=== PATIENT | female | born 1965 | race Caucasian/White ===

== ENCOUNTER 2024-07-09 00:20 | Emergency (ER) | payer MEDICARE, MEDICAID, SELFPAY ==
--- NOTE | ~2024-07-09 | XR_ITS ---
CLINICAL HISTORY: pain 3 views left hand Comparison: None Findings: There is no fracture or dislocation. There is mild osteoarthritis of the 1st carpometacarpal joint. There is no radiopaque foreign body. Impression: No acute findings. This document has been electronically signed by: Huy Martinez MD on 07/09/2024 02:05:04
--- NOTE | ~2024-07-09 | XR_ITS ---
CLINICAL HISTORY: pain 2 views left forearm Comparison: None Findings: There is no fracture or dislocation. Joint spaces appear normal. There is no radiopaque foreign body. Impression: Unremarkable left forearm radiographs. This document has been electronically signed by: Huy Martinez MD on 07/09/2024 02:02:59
[2024-07-09 00:33] VITALS: BP 102/64; PULSE 84; O2SAT 97
[2024-07-09 00:57] VITALS: BP 93/54; PULSE 61; RESP 20; TEMP 36.5; O2SAT 95; BMI 40.3
[2024-07-09 04:00] VITALS: BP 95/52; PULSE 53; RESP 16; TEMP 36.3; O2SAT 96
[2024-07-09] MEDS: Acetaminophen 325 MG TABLET 650 MG PO (06:18)
--- NOTE | 2024-07-09 07:26 | ED.GENADULT ---
HPI - General Adult General Chief complaint: Extremity Problem Stated complaint: FEELS PINS&NEEDLES LT ARM ELBOW TO HAND Time Seen by Provider: 07/09/24 07:21 Source: patient and EMS Mode of arrival: EMS Limitations: no limitations History of Present Illness ED Provider: DR. Rosa HPI narrative: 58-year-old female with known history of TBI, diabetes and peripheral neuropathy came in with intermittent bilateral hands and forearms pins and needles and burning sensation going for 2 months patient was diagnosed with peripheral neuropathy is taking gabapentin for her chronic condition without relief of her symptoms, patient now is complaining of no extremities pain, no trauma to her extremities, no fall, no injury. No recent travel, no recent prolonged immobilization, no history of DVT, no chest pain, no SOB. Related Data Allergies Allergy/AdvReac Type Severity Reaction Status Date / Time Penicillins Allergy Anaphylaxis Verified 07/09/24 01:08 Review of Systems Review of Systems: All other systems are reviewed and are negative Constitutional: Reports as per HPI and Reports no additional constitutional complaints Eyes: Reports as per HPI and Reports no additional eye complaints Reports system reviewed and no additional complaints, except as documented Cardiovascular: Reports as per HPI and Reports no additional cardiovascular complaints Respiratory: Reports as per HPI and Reports no additional respiratory complaints Gastrointestinal: Reports as per HPI and Reports no additional gastrointestinal complaints Genitourinary: Reports no additional female genitourinary complaints Musculoskeletal: Reports no additional musculoskeletal complaints Skin/Breast: Reports system reviewed and no additional complaints, except as docu Psychiatric: Reports no additional psychiatric complaints Endocrine: Reports no additional endocrine complaints Hematologic/Lymphatic: Reports no additional hematologic/lymphatic complaints Allergic/Immunologic: Reports no additional allergic/immunologic complaints Reports system reviewed and no additional complaints, except as documented and Reports Abnormal speech present [facility] Social History Social History Smoked in Last 30 Days: No Advance Directives: Yes Advance Directives on File: No Physical Exam ED Vital Signs: Vital Signs - 24 hr 07/09/24 00:57 07/09/24 04:00 Temperature 97.7 F 97.3 F Pulse Rate 61 53 Respiratory Rate 20 16 Blood Pressure 93/54 L 95/52 L Pulse Oximetry 95 96 Oxygen Delivery Method Room Air Room Air BMI result Body Mass Index 40.3 Vital signs have been reviewed and appear to be correct. Blood pressure elevated. Heart rate normal. Respiratory rate normal. Temperature normal. Oxygen saturation normal. Appearance: Alert. Oriented X3. No acute distress. Head: Normal external exam. Normocephalic. Atraumatic. No Goff signs noted. No raccoon eyes noted Eyes: PERRLA. EOMI. Conjunctiva and sclera normal. Eyelids normal. ENT: TM's Normal. Pharynx normal. Uvula midline. Moist mucous membranes. No trismus noted. No drooling noted. No muffled voice noted. Neck: Normal inspection. Neck supple. FROM. No adenopathy. Thyroid Normal. No meningeal signs. No neck mass noted. CVS: Normal heart rate and rhythm. Heart sound normal. No murmurs noted. Pulses normal throughout. Respiratory: No respiratory distress. Painless inspiration. Breath sounds normal. No wheezes/rales/rhonchi noted. Chest nontender. No accessory muscle usage noted or decreased air movement noted. Abdomen: Soft and nontender. Bowel sounds normal in all 4 quadrants. No distention noted. No organomegaly noted. No visible injury noted. Back: No CVA tenderness. Full range of motion noted. Skin: Skin warm and dry. Normal skin color. Normal skin turgor. No rashes/lesions/lacerations noted. Extremities: No lower extremity edema. Extremities exhibit normal range of motion. Extremities nontender. Neuro: Oriented X 3. Cranial nerve exam: II-XII are grossly intact No motor deficit. No sensory deficit. Reflexes normal. Course Reevaluation(s) Reevaluation #1: patient's symptoms is secondary to diabetic peripheral neuropathy patient is already taking gabapentin was instructed to follow-up with her PCP for further evaluation. VS is 124 in the ED. Time: 07:29 Medications Administered Discontinued Medications Generic Name Dose Route Start Last Admin Trade Name Freq PRN Reason Stop Dose Admin Acetaminophen 650 mg 07/09/24 06:14 07/09/24 06:18 Acetaminophen 325 Mg Tablet PO 07/09/24 06:15 650 mg ONCE ONE Administration Medical Decision Making Differential Diagnosis Differential Diagnoses: The differential diagnosis associated with the presentation includes ( Peripheral neuropathy, DVT, left arm injury.) Admission/Observation Consideration of admission/observation: Escalation of care including admission/observation considered Lab Data Labs: Lab Results 07/09/24 Range/Units 07:36 POC Glucose 124 H (60-115) mg/dL Independent Interpretation I performed an independent interpretation of an: Plain X-Ray ( Left hand/ left forearm: No acute fracture.) Radiology Impression Discussion of test interpretation with radiology: I have reviewed the radiologist's reading. Discharge Plan Discharge Clinical Impression: Diabetic peripheral neuropathy Patient Disposition: Xfer [facility] Instructions: Diabetic Peripheral Neuropathy (ED) Referrals: Ascencion Blum DO [Primary Care Provider] - Print Language: Divehi
[2024-07-09 07:41] LABS: Glucose, Whole Blood 124 mg/dL (60-115)
[2024-07-09 08:41] VITALS: BP 97/58; PULSE 60; RESP 15; TEMP 36.6; O2SAT 97
[2024-07-09 11:02] VITALS: BP 100/60; PULSE 80; RESP 14; TEMP 36.8; O2SAT 98
== END 2024-07-09 10:30 | disposition skilled nursing facility (03) ==
PROVIDERS: Emergency Provider Emergency Medicine; PCP Hospitalist
DX: E11.42 Type 2 diabetes mellitus with diabetic polyneuropathy (principal); M79.642 Pain in left hand; M25.522 Pain in left elbow
CPT/HCPCS: 73090; 73130; 82947; 99284; 99285

== ENCOUNTER → 2024-07-09 01:30 | Outpatient (BNV) | payer MEDICARE, MEDICAID, SELFPAY | PROVIDERS: PCP Hospitalist; Visit Provider Radiology Diagnostic Radiology | DX: M79.642 Pain in left hand (principal); M79.632 Pain in left forearm | CPT/HCPCS: 73090; 73130 ==

== ENCOUNTER 2025-05-16 13:49 | Outpatient (REF) | payer MEDICARE, MEDICAID, SELFPAY ==
--- NOTE | ~2025-05-16 | MM_ITS ---
EXAMINATION: MM SCREENING DIGITAL BREAST TOMOSYNTHESIS, BILATERAL CLINICAL INFORMATION: Screening. Asymptomatic. COMPARISON: Mammography: No prior imaging available for comparison. TECHNIQUE: Digital breast mammography with tomosynthesis is performed in both the craniocaudal and mediolateral oblique views along with computer-aided detection (CAD). FINDINGS: There are scattered areas of fibroglandular density. Right: Right marker clip. Focal asymmetry upper central breast middle to posterior depth. No suspicious calcifications or other abnormal findings. Left: Focal asymmetry upper central breast posterior depth. No suspicious calcifications or other abnormal findings. MM/MM tomosynthesis screening BI IMPRESSION: Additional imaging is recommended ASSESSMENT: BI-RADS Category 0: Incomplete - Need additional Imaging Evaluation RECOMMENDATION: 1. Additional views of the bilateral breasts. 2. Targeted ultrasound if warranted after review of the additional views. 3. Radiology department staff will contact the patient for additional imaging. Additional Imaging required This examination should not preclude the clinical evaluation of a suspicious palpable abnormality. This patient's information was entered into a reminder system with a target due date for their next mammogram. Electronically signed by: Lyssa Walker DO 05/18/2025 06:35 PM DINO
--- OUTSIDE RECORDS SUMMARY | 2025-05-16 21:21 | XMS_ITS | Encounter Summary ---
Author Organization [facility] Address [address] [place] [address] Care Team Providers Care Hardwood Floor Sander Name Role Phone Ascencion Blum MD Primary Care Provider Encounter Details Date Type Department Care Team (Late st Contact Info) Description 06/02/2024 Lab Requisition [facility] Lab [address] [place] [address] Ascencion Blum MD [address] [place] [address] Dr [address] [place], [place] Bipolar disorder, unspecified (CMS/HCC V24, CMS/HCC V28) Social History Tobacco Use Types Packs/Day Years Used Date Smoking Tobacco: Never Assessed Comments Unknown Sex and Gender Information Value Date Recorded Sex Assigned at Not on file Legal Sex Female 3:40 PM EDT Gender Identity Not on file Sexual Orientation Not on file documented as of this encounter Plan of Treatment Not on file documented as of this encounter Procedures Procedure Name Priority Date/Time Associated Diagnosis Comments THYROID STIMULATING HORMONE Routine 06/02/2024 7:02 AM EST Bipolar disorder, unspecified (CMS/HCC) HEMOGLOBIN A1C Routine 06/02/2024 7:02 AM EST Bipolar disorder, unspecified (CMS/HCC) documented in this encounter Results * Thyroid stimulating hormone (06/02/2024 7:02 AM EST) TSH 1.40 0.40 - 4.00 mcIU/mL LAB CHEMISTRY METHOD 06/02/2024 8:11 AM EST [facility] LAB Blood Venous blood specimen / Unknown 06/02/2024 7:02 AM EST 06/02/2024 7:40 AM EST us Ascencion Blum MD LAB BLOOD ORDERABLES Final Resul t Performing Organization Address [facility]/ZIP Co de Phone Number [facility] LAB [address] [place] [address], [place] [phone] * Hemoglobin A1c (06/02/2024 7:02 AM EST) Hemoglobin A1C 6.3 <6.5 % LAB CHEMISTRY METHOD 06/02/2024 12:25 PM EST [facility] LAB Mean Bld Glu Estim. 134 mg/dL LAB CHEMISTRY METHOD 06/02/2024 12:25 PM EST [facility] LAB Blood Venous blood specimen / Unknown 06/02/2024 7:02 AM EST 06/02/2024 7:40 AM EST us Ascencion Blum MD LAB BLOOD ORDERABLES Final Resul t Performing Organization Address [facility] Co de Phone Number [facility] LAB [address] [place] [address], [place] [phone] documented in this encounter Visit Diagnoses Diagnosis Bipolar disorder, unspecified (CMS/HCC V24, CMS/HCC V28) Bipolar disorder, unspecified documented in this encounter Care Teams Hardwood Floor Sander Relationship Specialty Start Date End Date Ascencion Blum MD [address] [place] [address] Dr [address] [place] [address] [place] PCP - General Internal Medicine 12/01/24 documented as of this encounter
--- OUTSIDE RECORDS SUMMARY | 2025-05-16 21:22 | XMS_ITS | Encounter Summary ---
Author Organization [facility] Address [address] [place] [address] Care Team Providers Care Composite Laminator Name Role Phone Ascencion Blum MD Primary Care Provider [phone] Encounter Details Date Type Department Care Team (Late st Contact Info) Description 03/20/2025 Lab Requisition [facility] - Main Lab [address] [facility] [place] [address] Ascencion Blum MD [address] [place] [address] [address] [place] Type 2 diabetes mellitus with diabetic polyneuropathy (CMS/HCC V24, CMS/HCC V28); Gastro-esophageal reflux disease without esophagitis; Hypothyroidism, unspecified Social History Tobacco Use Types Packs/Day Years [...] Associated Diagnosis Comments THYROID STIMULATING HORMONE Routine 03/20/2025 6:50 AM EDT Type 2 diabetes mellitus with diabetic polyneuropathy (CMS/HCC V24, CMS/HCC V28) Gastro-esophageal reflux disease without esophagitis Hypothyroidism, unspecified THYROXINE FREE Routine 03/20/2025 6:50 AM EDT Type 2 diabetes mellitus with diabetic polyneuropathy (CMS/HCC V24, CMS/HCC V28) Gastro-esophageal reflux disease without esophagitis Hypothyroidism, unspecified HEMOGLOBIN A1C Routine 03/20/2025 6:50 AM EDT Type 2 diabetes mellitus with diabetic polyneuropathy (CMS/HCC V24, CMS/HCC V28) Gastro-esophageal reflux disease without esophagitis Hypothyroidism, unspecified COMPREHENSIVE METABOLIC PANEL Routine 03/20/2025 6:50 AM EDT Type 2 diabetes mellitus with diabetic polyneuropathy ([facility] V24, [facility] V28) Gastro-esophageal reflux disease without esophagitis Hypothyroidism, unspecified documented in this encounter Results * Thyroid stimulating hormone (03/20/2025 6:50 AM EDT) TSH 0.85 0.40 - 4.00 mcIU/mL LAB CHEMISTRY METHOD 03/20/2025 11:01 AM EDT [facility] LAB Blood Venous blood specimen / Unknown 03/20/2025 6:50 AM EDT 03/20/2025 7:53 AM EDT us Ascencion Blum MD LAB BLOOD ORDERABLES Final Resul t Performing Organization Address City/[facility]/ZIP Co de Phone Number [facility] LAB [address] [place] [address], [place] [phone] * Hemoglobin A1c (03/20/2025 6:50 AM EDT) Pathologist [facility] Hemoglobin A1C 6.1 <6.5 % LAB CHEMISTRY METHOD 03/20/2025 11:17 AM EDT [facility] LAB Mean Bld Glu Estim. 128 mg/dL LAB CHEMISTRY METHOD 03/20/2025 11:17 AM EDT [facility] LAB Blood Venous blood specimen / Unknown 03/20/2025 6:50 AM EDT 03/20/2025 7:53 AM EDT us Ascencion Blum MD LAB BLOOD ORDERABLES Final Resul t Performing Organization Address City/[facility]/ZIP Co de Phone Number [facility] LAB [address] [place] [address], [place] [phone] * Thyroxine free (03/20/2025 6:50 AM EDT) Free T4 1.37 0.70 - 1.80 ng/dL LAB CHEMISTRY METHOD 03/20/2025 11:01 AM [facility] LAB Blood Venous blood specimen / Unknown 03/20/2025 6:50 AM EDT 03/20/2025 7:53 AM EDT us Ascencion Blum MD LAB BLOOD ORDERABLES Final Resul t [facility] LAB [address] [place] [address], * (ABNORMAL) Comprehensive metabolic panel (03/20/2025 6:50 AM EDT) Sodium 141 133 - 145 mmol/L LAB CHEMISTRY METHOD 03/20/2025 8:46 AM [facility] Potassium 4.9 3.5 - 5.5 mmol/L LAB CHEMISTRY METHOD 03/20/2025 8:46 AM [facility] Chloride 106 96 - 110 mmol/L LAB CHEMISTRY METHOD 03/20/2025 8:46 AM [facility] CO2 31 21 - 32 mmol/L LAB CHEMISTRY METHOD 03/20/2025 8:46 AM [facility] Anion Gap 4 3 - 11 LAB CHEMISTRY METHOD 03/20/2025 8:46 AM [facility] Glucose 125(H) 70 - 100 mg/dL LAB CHEMISTRY METHOD 03/20/2025 8:46 AM [facility] BUN 8 5 - 25 mg/dL LAB CHEMISTRY METHOD 03/20/2025 8:46 AM [facility] Creatinine 0.69 0.50 - 1.10 mg/dL LAB CHEMISTRY METHOD 03/20/2025 8:46 AM [facility] LAB eGFR 101 >=60 mL/min/1. 73m2 LAB CHEMISTRY METHOD 03/20/2025 8:46 AM [facility] LAB Comment:Calculation based on the Chronic Kidney Disease Epidemiology Collaboration (CKD-EPI) equation refit without adjustment for race. BUN/Creatinine Ratio 11.6 LAB CHEMISTRY METHOD 03/20/2025 8:46 AM [facility] Calcium 8.9 8.5 - 10.5 mg/dL LAB CHEMISTRY METHOD 03/20/2025 8:46 AM [facility] AST (SGOT) 17 10 - 42 unit/L LAB CHEMISTRY METHOD 03/20/2025 8:46 AM [facility] ALT (SGPT) 25 10 - 60 unit/L LAB CHEMISTRY METHOD 03/20/2025 8:46 AM [facility] Alkaline Phosphatase 93 42 - 121 unit/L LAB CHEMISTRY METHOD 03/20/2025 8:46 AM [facility] Total Protein 6.1 6.0 - 8.0 g/dL LAB CHEMISTRY METHOD 03/20/2025 8:46 AM [facility] Albumin 3.2 3.2 - 5.0 g/dL LAB CHEMISTRY METHOD 03/20/2025 8:46 AM [facility] Total Bilirubin 0.2 0.0 - 1.4 mg/dL LAB CHEMISTRY METHOD 03/20/2025 8:46 AM [facility] Blood Venous blood specimen / Unknown 03/20/2025 6:50 AM EDT 03/20/2025 7:53 AM EDT us Ascencion Blum MD LAB BLOOD ORDERABLES Final Resul t [facility] LAB [address] [place] [address], documented in this encounter Visit Diagnoses Diagnosis Type 2 diabetes mellitus with diabetic polyneuropathy (CMS/HCC V24, CMS/HCC V28) Gastro-esophageal reflux disease without esophagitis Hypothyroidism, unspecified documented in this encounter Care Teams Composite Laminator Relationship Specialty Start Date End Date Ascencion Blum MD [address] [place] [address] Dr [address] [place] PCP - General Internal Medicine 12/01/24 documented as of this encounter
--- OUTSIDE RECORDS SUMMARY | 2025-05-16 21:22 | XMS_ITS | Encounter Summary ---
Author Organization [facility] Address [address] [place] [address] Care Team Providers Care Heating Fixture Tender Name Role Phone Ascencion Blum MD Primary Care Provider [phone] Encounter Details Date Type Department Care Team (Late st Contact Info) Description 12/01/[address] [facility] - Main Lab [address] [place] [address] Ascencion Blum MD [address] [place] [address] [address] [place] Hypothyroidism, unspecified; Type 2 diabetes mellitus with diabetic polyneuropathy (CMS/[facility] V24, CMS/[facility] V28) Social History Tobacco Use Types Packs/Day [...] Associated Diagnosis Comments THYROID STIMULATING HORMONE Routine 12/01/2024 7:09 AM EDT Hypothyroidism, unspecified Type 2 diabetes mellitus with diabetic polyneuropathy (CMS/HCC V24, CMS/[facility] V28) HEMOGLOBIN A1C Routine 12/01/2024 7:09 AM EDT Hypothyroidism, unspecified Type 2 diabetes mellitus with diabetic polyneuropathy (CMS/HCC V24, CMS/HCC V28) documented in this encounter Results * Hemoglobin A1c (12/01/2024 7:09 AM EDT) Hemoglobin A1C 5.9 <6.5 % LAB CHEMISTRY METHOD 12/01/2024 2:31 PM EDT [facility] LAB Mean Bld Glu Estim. 123 mg/dL LAB CHEMISTRY METHOD 12/01/2024 2:31 PM EDT [facility] LAB Blood Venous blood specimen / Unknown 12/01/2024 7:09 AM EDT 12/01/2024 8:16 AM EDT us Ascencion Blum MD LAB BLOOD ORDERABLES Final Resul t Performing Organization Address [facility]/ZIP Co de Phone Number [facility] LAB [address] [place] [address], [place] [phone] * Thyroid stimulating hormone (12/01/2024 7:09 AM EDT) TSH 0.75 0.40 - 4.00 mcIU/mL LAB CHEMISTRY METHOD 12/01/2024 9:52 AM EDT [facility] LAB Blood Venous blood specimen / Unknown 12/01/2024 7:09 AM EDT 12/01/2024 8:16 AM EDT us Ascencion Blum MD LAB BLOOD ORDERABLES Final Resul t Performing Organization Address [facility]/ZIP Co de Phone Number [facility] [address] [place] [address], [place] [phone] documented in this encounter Visit Diagnoses Diagnosis Hypothyroidism, unspecified Type 2 diabetes mellitus with diabetic polyneuropathy (CMS/HCC V24, CMS/HCC V28) documented in this encounter Care Teams Heating Fixture Tender Relationship Specialty Start Date End Date Ascencion Blum MD [address] [place] [address] Dr [address] [place], [place] PCP - General Internal Medicine 12/01/24 documented as of this encounter
--- OUTSIDE RECORDS SUMMARY | 2025-05-16 21:22 | XMS_ITS | Encounter Summary ---
Author Organization [facility] Address [address] [place] [address] Care Team Providers Care Surgical Services Coordinator Name Role Phone Ascencion Blum MD Primary Care Provider [phone] Encounter Details Date Type Department Care Team (Late st Contact Info) Description 08/31/2024 Lab Requisition [facility] - Main Lab [address] [place] [address] Ascencion Blum MD [address] [place] [address] [address] [place] Bipolar disorder, unspecified (CMS/HCC V24, CMS/HCC V28) [...] Associated Diagnosis Comments THYROID STIMULATING HORMONE Routine 08/31/2024 6:38 AM EDT Bipolar disorder, unspecified (CMS/HCC) HEMOGLOBIN A1C Routine 08/31/2024 6:38 AM EDT Bipolar disorder, unspecified (CMS/HCC) documented in this encounter Results * Thyroid stimulating hormone (08/31/2024 6:38 AM EDT) TSH 1.81 0.40 - 4.00 mcIU/mL LAB CHEMISTRY METHOD 08/31/2024 8:28 AM EDT [facility] ([facility]) [facility] LAB Blood Venous blood specimen / Unknown 08/31/2024 6:38 AM EDT 08/31/2024 7:14 AM EDT us Ascencion Blum MD LAB BLOOD ORDERABLES Final Resul t Performing Organization Address [facility]/ZIP Co de Phone Number [facility] [address] [place] [address], [place] [phone] * Hemoglobin A1c (08/31/2024 6:38 AM EDT) Hemoglobin A1C 5.9 <6.5 % LAB CHEMISTRY METHOD 08/31/2024 2:[address] [facility] LAB Mean Bld Glu Estim. 123 mg/dL LAB CHEMISTRY METHOD 08/31/2024 2:[address] [facility] LAB Blood Venous blood specimen / Unknown 08/31/2024 6:38 AM EDT 08/31/2024 7:14 AM EDT us Ascencion Blum MD LAB BLOOD ORDERABLES Final Resul t Performing Organization Address [facility]/ZIP Co de Phone Number [facility] [address] [place] [address], [place] [phone] documented in this encounter Visit Diagnoses Diagnosis Bipolar disorder, unspecified (CMS/HCC V24, CMS/HCC V28) Bipolar disorder, unspecified documented in this encounter Care Teams Surgical Services Coordinator Relationship Specialty Start Date End Date Ascencion Blum MD [address] [place] [address] Dr [address] [place], [place] PCP - General Internal Medicine 12/01/24 documented as of this encounter
--- OUTSIDE RECORDS SUMMARY | 2025-05-16 21:22 | XMS_ITS | Encounter Summary ---
Author Organization [facility] Address [address] [place] [address] Care Team Providers Care Certified Fraud Examiner Name Role Phone Ascencion Blum MD Primary Care Provider [phone] Encounter Details Date Type Department Care Team (Late st Contact Info) Description 12/18/2024 Lab Requisition [facility] - Main Lab [address] [facility] [place] [address] Ascencion Blum MD [address] [place] [address] [address] [place] Hypothyroidism, unspecified; Type 2 diabetes mellitus with diabetic nephropathy (CMS/HCC V24, CMS/HCC V28) Social History Tobacco [...] Procedure Name Priority Date/Time Associated Diagnosis Comments LIPID PANEL WITH REFLEX TO DIRECT LDL Routine 12/18/2024 12:25 PM EDT Hypothyroidism, unspecified Type 2 diabetes mellitus with diabetic nephropathy (CMS/HCC V24, CMS/HCC V28) CBC WITH AUTO DIFFERENTIAL Routine 12/18/2024 12:25 PM EDT Hypothyroidism, unspecified Type 2 diabetes mellitus with diabetic nephropathy (CMS/HCC V24, CMS/HCC V28) CBC AND DIFFERENTIAL Routine 12/18/2024 12:25 PM EDT Hypothyroidism, unspecified Type 2 diabetes mellitus with diabetic nephropathy (CMS/HCC V24, CMS/HCC V28) THYROID STIMULATING HORMONE Routine 12/18/2024 12:25 PM EDT Hypothyroidism, unspecified Type 2 diabetes mellitus with diabetic nephropathy (CMS/HCC V24, CMS/HCC V28) HEMOGLOBIN A1C Routine 12/18/2024 12:25 PM EDT Hypothyroidism, unspecified Type 2 diabetes mellitus with diabetic nephropathy ([facility] [place], [facility] V28) COMPREHENSIVE METABOLIC PANEL Routine 12/18/2024 12:25 PM EDT Hypothyroidism, unspecified Type 2 diabetes mellitus with diabetic nephropathy ([facility] [place]24, [facility] V28) documented in this encounter Results * (ABNORMAL) CBC auto differential (12/18/2024 12:25 PM EDT) [facility] WBC 12.1(H) 4.8 - 10.8 K/mcL LAB HEMETOLOGY METHOD 12/18/2024 2:58 PM EDT [facility] RBC 5.20(H) 3.80 - 4.80 M/mcL LAB HEMETOLOGY METHOD 12/18/2024 2:58 PM EDT [facility] Hemoglobin 14.8 11.5 - 16.0 g/dL LAB HEMETOLOGY METHOD 12/18/2024 2:58 PM EDT [facility] Hematocrit 45.9 35.0 - 47.0 % LAB HEMETOLOGY METHOD 12/18/2024 2:58 PM EDT [facility] MCV 88.3 79.0 - 98.0 FL LAB HEMETOLOGY METHOD 12/18/2024 2:58 PM EDT [facility] MCH 28.5 27.0 - 32.0 pcg LAB HEMETOLOGY METHOD 12/18/2024 2:58 PM EDT [facility] MCHC 32.2 32.0 - 37.0 g/dL LAB HEMETOLOGY METHOD 12/18/2024 2:58 PM EDT [facility] RDW 13.0 11.0 - 15.0 % LAB HEMETOLOGY METHOD 12/18/2024 2:58 PM EDT [facility] Platelets 375 130 - 400 K/mcL LAB HEMETOLOGY METHOD 12/18/2024 2:58 PM EDT [facility] MPV 10.0 7.0 - 11.0 FL LAB [facility]EMETOLOGY [facility] NRBC 0.0 <1.0 % LAB HEMETOLOGY METHOD 12/18/2024 2:58 PM EDT [facility] NRBC Absolute 0.00 <0.10 K/mcL LAB HEMETOLOGY METHOD 12/18/2024 2:58 PM EDT [facility] Neutrophils Relative 58.4 % LAB HEMETOLOGY METHOD 12/18/2024 2:58 PM [facility] Lymphocytes Relative 32.1 % LAB HEMETOLOGY METHOD 12/18/2024 2:58 PM EDT [facility] Monocytes Relative 6.1 % LAB HEMETOLOGY METHOD 12/18[facility]24 [facility] Eosinophils Relative 2.3 % LAB HEMETOLOGY METHOD 12/18[facility]24 [facility] Basophils Relative 0.5 % LAB HEMETOLOGY METHOD 12/18/2024 2:58 PM [facility] Immature Granulocytes Relative 0.6 % LAB HEMETOLOGY METHOD 12/18/2024 2:58 PM EDT [facility] Neutrophils Absolute 7.06(H) 1.50 - 7.00 K/mcL LAB HEMETOLOGY METHOD 12/18[facility] Lymphocytes Absolute 3.88 1.00 - 5.00 K/mcL LAB HEMETOLOGY METHOD 12/18[facility]2024 [facility] Monocytes Absolute 0.74 0.20 - 1.00 K/mcL LAB HEMETOLOGY METHOD 12/18/2024 2:58 PM EDT [facility] Eosinophils Absolute 0.28 0.00 - 0.50 K/[facility] LAB HEMETOLOGY METHOD 12/18/2024 2:58 PM EDT [facility] Basophils Absolute 0.06 0.00 - 0.20 K/[facility] LAB HEMETOLOGY METHOD 12/18/2024 2:58 PM EDT [facility] Immature Granulocytes Absolute 0.07(H) 0.00 - 0.03 K/[facility] LAB HEMETOLOGY METHOD 12/18/2024 2:58 PM EDT [facility] Blood Venous blood specimen / Unknown 12/18/2024 12:25 PM EDT 12/18/2024 2:00 PM EDT us Ascencion Blum MD LAB BLOOD ORDERABLES Final Resul t Performing Organization Address City/[facility]/ZIP Co de Phone Number [facility] [address] [place] [address], [place] [phone] * Thyroid stimulating hormone (12/18/2024 12:25 PM EDT) Pathologist [facility] TSH 0.97 0.40 - 4.00 mcIU/mL LAB CHEMISTRY METHOD 12/18/2024 6:39 PM EDT [facility] Blood Venous blood specimen / Unknown 12/18/2024 12:25 PM EDT 12/18/2024 2:00 PM EDT us Ascencion Blum MD LAB BLOOD ORDERABLES Final Resul t Performing Organization Address City/[facility]/ZIP Co de Phone Number [facility] [address] [place] [address], [place] [phone] * Hemoglobin A1c (12/18/2024 12:25 PM EDT) Hemoglobin A1C 6.1 <6.5 % LAB CHEMISTRY METHOD 12/18/2024 8:23 PM EDT [facility] Mean Bld Glu Estim. 128 mg/dL LAB CHEMISTRY METHOD 12/18/2024 8:23 PM EDT [facility] Blood Venous blood specimen / Unknown 12/18/2024 12:25 PM EDT 12/18/2024 2:00 PM EDT us Ascencion Blum MD LAB BLOOD ORDERABLES Final Resul t [facility] [address] [place] [address], [place] [phone] * (ABNORMAL) Lipid panel with reflex to direct LDL (12/18/2024 12:25 PM EDT) Cholesterol 174 0 - 200 mg/dL LAB CHEMISTRY METHOD 12/18/2024 5:59 PM EDT [facility] Triglycerides 257(H) 0 - 150 mg/dL LAB CHEMISTRY METHOD 12/18/2024 5:59 PM EDT [facility] HDL 39(L) >=40 mg/dL LAB CHEMISTRY METHOD 12/18/2024 5:59 PM EDT [facility] LDL Calculated 84 0 - 100 mg/dL LAB CHEMISTRY METHOD 12/18/2024 5:59 PM EDT [facility] VLDL Cholesterol Eddie 51.4 mg/dL LAB CHEMISTRY METHOD 12/18/2024 5:59 PM EDT [facility] Non HDL Chol. (LDL+VLDL) 135 <145 mg/dL LAB CHEMISTRY METHOD 12/18/2024 5:59 PM EDT [facility] Chol/HDL Ratio 4.5(H) 0.0 - 4.4 LAB CHEMISTRY METHOD 12/18/2024 5:59 PM EDT [facility] Blood Venous blood specimen / Unknown 12/18/2024 12:25 PM EDT 12/18/2024 2:00 PM EDT us Ascencion Blum MD LAB BLOOD ORDERABLES Final Resul t [facility] [address] [place] [address], * (ABNORMAL) Comprehensive metabolic panel (12/18/2024 12:25 PM EDT) Sodium 139 133 - 145 mmol/L LAB CHEMISTRY METHOD 12/18/2024 5:59 PM EDT [facility] Potassium 5.7(H) 3.5 - 5.5 mmol/L LAB CHEMISTRY METHOD 12/18/2024 5:59 PM EDT [facility] Chloride 103 96 - 110 mmol/L LAB CHEMISTRY METHOD 12/18/2024 5:59 PM [facility] CO2 28 21 - 32 mmol/L LAB CHEMISTRY METHOD 12/18/2024 5:59 PM EDT [facility] Anion Gap 8 3 - 11 LAB CHEMISTRY METHOD [facility] Glucose 128(H) 70 - 100 mg/dL LAB CHEMISTRY METHOD 12/18/2024 5:59 PM [facility] BUN 13 5 - 25 mg/dL LAB CHEMISTRY METHOD 12/18/2024 5:59 PM [facility] Creatinine 0.75 0.50 - 1.10 mg/dL LAB CHEMISTRY METHOD 12/18/2024 5:59 PM EDT [facility] eGFR 93 >=60 mL/min/1. 73m2 LAB CHEMISTRY METHOD 12/18[facility]2024 [facility] Comment:Calculation based on the Chronic Kidney Disease Epidemiology Collaboration (CKD-EPI) equation refit without adjustment for race. BUN/Creatinine Ratio 17.3 LAB CHEMISTRY METHOD 12/18/2024 5:59 PM [facility] Calcium 9.1 8.5 - 10.5 mg/dL LAB CHEMISTRY METHOD 12/18/2024 5:59 PM EDT [facility] AST (SGOT) 16 10 - 42 unit/L LAB CHEMISTRY METHOD 12/18/2024 5:59 PM T [facility] ALT (SGPT) 33 10 - 60 unit/L LAB CHEMISTRY METHOD 12/18/2024 5:59 PM T [facility] Alkaline Phosphatase 116 42 - 121 unit/L LAB CHEMISTRY METHOD 12/18/2024 5:59 PM EDT [facility] Total Protein 7.4 6.0 - 8.0 g/dL LAB CHEMISTRY METHOD 12/18/2024 5:59 PM [facility] Albumin 3.9 3.2 - 5.0 g/dL LAB CHEMISTRY METHOD 12/18/2024 5:59 PM [facility] Total Bilirubin 0.4 0.0 - 1.4 mg/dL LAB CHEMISTRY METHOD 12/18/2024 5:59 PM T [facility] Blood Venous blood specimen / Unknown 12/18/2024 12:25 PM EDT 12/18/2024 2:00 PM EDT us Ascencion Blum MD LAB BLOOD ORDERABLES Final Resul t [facility] [address] [place] [address], documented in this encounter Visit Diagnoses Diagnosis Hypothyroidism, unspecified Type 2 diabetes mellitus with diabetic nephropathy (CMS/HCC V24, CMS/HCC V28) documented in this encounter Care Teams Certified Fraud Examiner Relationship Specialty Start Date End Date Ascencion Blum MD [address] [place] [address] [place] [address] [place] PCP - General Internal Medicine 12/01/24 documented as of this encounter
--- OUTSIDE RECORDS SUMMARY | 2025-05-16 21:22 | XMS_ITS | Clinical Summary ---
Author Organization [address] [facility] Address [address] [place] [address] Phone Care Team Providers Care Cell Maker Name Role Phone Ascencion Blum MD Primary Care Provider [phone] Encounters Date Type Department Care Team Description 03/20/2025 Lab Requisition [facility] - Main Lab 299 [facility] [place] [address] Ascencion Blum MD Type 2 diabetes mellitus with diabetic polyneuropathy (CMS/HCC V24, CMS/HCC V28); Gastro-esophageal reflux disease without esophagitis; Hypothyroidism, unspecified from Last 3 Months Social History Tobacco Use Types Packs/Day Years Used Date Smoking Tobacco: Never Assessed Comments Unknown Sex and Gender Information Value Date Recorded Sex Assigned at Not on file Legal Sex Female 3:40 PM EDT Gender Identity Not on file Sexual Orientation Not on file Plan of Treatment Health Maintenance Due Date Last Done Comments Breast Cancer Screening 1965 Colorectal Cancer Screening: Colonoscopy 1967 Diabetes: Annual Foot Exam 12/08/1977 Diabetes: Annual Retina Eye Exam 12/08/1977 DTaP,Tdap,and Td Vaccines (1 - Tdap) 12/08/1986 Hepatitis B Vaccines (1 of 3 - 19+ 3-dose series) 12/08/1986 Pneumococcal Vaccine: 50+ Years (1 of 2 - PCV) 12/08/1986 Cervical Cancer Screening: Pap Smear 12/08/1988 RSV Immunization Adult Patients (1 - Risk 50-74 years 1-dose series) 12/08/2017 Zoster Vaccines (1 of 2) 12/08/2017 HIV Screening 04/01/2024 Hepatitis C Screening 04/01/2024 Medicare Annual Wellness Visit 04/01/2024 Social Influencers of Health Screening 04/01/2024 Depression Screening 06/07/2024 Diabetes: Annual Urine Albumin-Creatinine Ratio (uACR) 12/01/2024 COVID-19 Vaccine (1 - 2024-26 season) 2025 Influenza Vaccine (#1) 2025 Diabetes: Blood Sugar Control Test (HGBA1C) 09/18/2025 03/20/2025, 12/18/2024, 12/01/2024, Additional history exists Diabetes: Annual GFR (Glomerular Filtration Rate) 03/20/2026 03/20/2025, 12/18/2024 Cholesterol Screening (Lipid Panel) 12/18/2029 12/18/2024 HIB Vaccines Aged Out No longer eligi ble based on patient's age to complete this topic HPV Vaccines Aged Out No longer eligi ble based on patient's age to complete this topic Hepatitis A Vaccines Aged Out No long er eligible based on patient's age to complete this topic IPV Vaccines Aged Out No longer eligi ble based on patient's age to complete this topic MMR Vaccines Aged Out No longer eligi ble based on patient's age to complete this topic Meningococcal ACWY Vaccine Aged Out N o longer eligible based on patient's age to complete this topic Meningococcal B Vaccine Aged Out No l onger eligible based on patient's age to complete this topic RSV Immunization Patients Under 20 months Aged Out No longer eligible based on patient's age to complete this topic Varicella Vaccines Aged Out No longer eligible based on patient's age to complete this topic Procedures Procedure Name Priority Date/Time Associated Diagnosis Comments THYROID STIMULATING HORMONE Routine 03/20/2025 6:50 AM EDT Type 2 diabetes mellitus with diabetic polyneuropathy ([facility] V24, CMS/[facility] V28) Gastro-esophageal reflux disease without [...] Type 2 diabetes mellitus with diabetic polyneuropathy ([facility] V24, [facility] [place]) Gastro-esophageal reflux disease without esophagitis Hypothyroidism, unspecified LIPID PANEL WITH REFLEX TO DIRECT LDL Routine 12/18/2024 12:25 PM EDT Hypothyroidism, unspecified Type 2 diabetes mellitus with diabetic nephropathy ([facility] V24, [facility] [place]) from Last 3 Months or Most Recently Relevant to Health Maintenance Results * Thyroid stimulating hormone (03/20/2025 6:50 AM EDT) Pathologist [facility] TSH 0.85 0.40 - 4.00 mcIU/mL LAB CHEMISTRY METHOD 03/20/2025 11:[address] [facility] Blood Venous blood specimen / Unknown 03/20/2025 6:50 AM EDT 03/20/2025 7:53 AM EDT us Ascencion Blum MD LAB BLOOD ORDERABLES Final Resul t Performing Organization Address City/[facility]/ZIP Co de Phone Number [facility] [address] [place] [address], [place] [phone] * Thyroxine free (03/20/2025 6:50 AM EDT) [facility] Free T4 1.37 0.70 - 1.80 ng/dL LAB CHEMISTRY METHOD 03/20/2025 11:[address] [facility] Blood Venous blood specimen / Unknown 03/20/2025 6:50 AM EDT 03/20/2025 7:53 AM EDT us Ascencion Blum MD LAB BLOOD ORDERABLES Final Resul t [facility] [address] [place] [address], [place] [phone] * Hemoglobin A1c (03/20/2025 6:50 AM EDT) [facility] Hemoglobin A1C 6.1 <6.5 % LAB CHEMISTRY METHOD 03/20/2025 11:17 AM [facility] Mean Bld Glu Estim. 128 mg/dL LAB CHEMISTRY METHOD 03/20/2025 11:17 AM [facility] Blood Venous blood specimen / Unknown 03/20/2025 6:50 AM EDT 03/20/2025 7:53 AM EDT us Ascencion Blum MD LAB BLOOD ORDERABLES Final Resul t [facility] [address] [place] [address], * (ABNORMAL) Comprehensive metabolic panel (03/20/2025 6:50 AM EDT) [facility] Sodium 141 133 - 145 mmol/L LAB CHEMISTRY METHOD 03/20/2025 8:46 AM [facility] Potassium 4.9 3.5 - 5.5 mmol/L LAB CHEMISTRY METHOD 03/20/2025 8:46 AM [facility] Chloride 106 96 - 110 mmol/L LAB CHEMISTRY METHOD 03/20/2025 8:46 AM [facility] CO2 31 21 - 32 mmol/L LAB CHEMISTRY METHOD 03/20/2025 8:46 AM [facility] Anion Gap 4 3 - 11 LAB CHEMISTRY METHOD 03/20/2025 8:46 AM [facility] Glucose 125(H) 70 - 100 mg/dL LAB CHEMISTRY METHOD 03/20/2025 8:46 AM [facility] BUN 8 5 - 25 mg/dL LAB CHEMISTRY METHOD 03/20/2025 8:46 AM [facility] Creatinine 0.69 0.50 - 1.10 mg/dL LAB CHEMISTRY METHOD 03/20/2025 8:46 AM [facility] eGFR 101 >=60 mL/min/1. 73m2 LAB CHEMISTRY METHOD 03/20/2025 8:46 AM [facility] Comment:Calculation based on the Chronic Kidney Disease Epidemiology Collaboration (CKD-EPI) equation refit without adjustment for race. BUN/Creatinine Ratio 11.6 LAB CHEMISTRY METHOD 03/20/2025 8:46 AM [facility] Calcium 8.9 8.5 - 10.5 mg/dL LAB CHEMISTRY METHOD 03/20/2025 8:46 AM [facility] AST (SGOT) 17 10 - 42 unit/L LAB CHEMISTRY METHOD 03/20/2025 8:46 AM [facility] ALT (SGPT) 25 10 - 60 unit/L LAB CHEMISTRY METHOD 03/20/2025 8:46 AM [facility] Alkaline Phosphatase 93 42 - 121 unit/L LAB CHEMISTRY METHOD 03/20/2025 8:46 AM [facility] Total Protein 6.1 6.0 - 8.0 g/dL LAB CHEMISTRY METHOD 03/20/2025 8:46 AM [facility] Albumin 3.2 3.2 - 5.0 g/dL LAB CHEMISTRY METHOD 03/20/2025 8:46 AM [facility] Total Bilirubin 0.2 0.0 - 1.4 mg/dL LAB CHEMISTRY METHOD 03/20/2025 8:46 AM [facility] Blood Venous blood specimen / Unknown 03/20/2025 6:50 AM EDT 03/20/2025 7:53 AM EDT us Ascencion Blum MD LAB BLOOD ORDERABLES Final Resul t [facility] [address] [place] [address], * (ABNORMAL) Lipid panel with reflex to direct LDL (12/18/2024 12:25 PM EDT) Cholesterol 174 0 - 200 mg/dL LAB CHEMISTRY METHOD 12/18/2024 5:[address] [facility] Triglycerides 257(H) 0 - 150 mg/dL LAB CHEMISTRY METHOD 12/18/2024 5:[address] [facility] HDL 39(L) >=40 mg/dL LAB CHEMISTRY METHOD 12/18/2024 5:[address] [facility] LDL Calculated 84 0 - 100 mg/dL LAB CHEMISTRY METHOD 12/18/2024 5:[address] [facility] VLDL Cholesterol Eddie 51.4 mg/dL LAB CHEMISTRY METHOD 12/18/2024 5:[address] [facility] Non HDL Chol. (LDL+VLDL) 135 <145 mg/dL LAB CHEMISTRY METHOD 12/18/2024 5:[address] [facility] Chol/HDL Ratio 4.5(H) 0.0 - 4.4 LAB CHEMISTRY METHOD 12/18/2024 5:[address] [facility] Blood Venous blood specimen / Unknown 12/18/2024 12:25 PM EDT 12/18/2024 2:00 PM EDT us Ascencion Blum MD LAB BLOOD ORDERABLES Final Resul t [facility] [address] [place] [address], from Last 3 Months or Most Recently Relevant to Health Maintenance Insurance MEDICARE MEDICAID - [place] Care Teams Cell Maker Relationship Specialty Start Date End Date Ascencion Blum MD [address] [place] [address] Dr [address] [place] PCP - General Internal Medicine 12/01/24
== END 2025-05-16 13:50 | disposition home or self-care (01) ==
LOC: HO.MAMMO 13:49
PROVIDERS: Visit Provider Hospitalist
DX: Z12.31 Encounter for screening mammogram for malignant neoplasm of breast (principal)
CPT/HCPCS: 77063; 77067

== ENCOUNTER → 2025-05-16 14:00 | Outpatient (BNV) | payer MEDICARE, MEDICAID, SELFPAY | PROVIDERS: Visit Provider Internal Medicine | DX: Z12.31 Encounter for screening mammogram for malignant neoplasm of breast (principal) | CPT/HCPCS: 77063; 77067 ==